=== PATIENT | male | born 1940 | race Hispanic/Latino ===

== ENCOUNTER 2016-09-22 15:07 | Day surgery (SDC) | payer OTHER ==
[~2016-09-22] VITALS: Ht 157.5 cm; Wt 66.7 kg
[~2016-09-22 15:07] MED LIST: ACET-171 PO; CEPH-512 PO; CeFAZolin 2 Gm/50 mL D5W IV Premix IV ONE; CeFAZolin Inj 2 GM in IV Premix 1 EACH IV ONE; LEVO50CA2 PO; LIP40 PO; Lactated Ringer's 1,000 ML IV SCH; METF1000 PO; MULT-1018 PO; TAMS0.4C98 PO
[2016-09-22] MEDS ORDERED: Propofol 10,000 mCg/mL 20 mL Inj ONE (15:08)
[2016-09-22] MEDS ORDERED: CeFAZolin Inj 2 gm / 50mL D5W IV ONE (15:27)
[2016-09-22 15:35] VITALS: BP 150/88; PULSE 68; RESP 16; O2SAT 98
[2016-09-22] MEDS: Lactated Ringer's 1,000 ML IV SCH ×2 (15:47→16:09)
[2016-09-22] MEDS ORDERED: Bupivacaine-MPF 0.25%/EPI 30 mL Inj INJ ONE (16:25)
--- NOTE | 2016-09-22 16:25 | PCM.HPANE ---
Patient Data Surgeon Admitting Provider: Attending Provider:Brandon Mcdermott MD Primary Care Physician:Fred Hutchins MD Other Provider:[facility] Reason for Visit Dermoid Inclusion Cyst Ht/WT & BMI Height (Feet): 6 Weight (Kilograms): 68.04 Body Mass Index 20.00 Allergies Coded Allergies: No Known Allergies (Unverified , 09/22/16) Past Anesthesia History Anesthesia History: Denies:: Abnormal Airway, Anesthesia Reactions, Difficult Intubation, Fam Anesthesia Reaction, Fam Malignant Hypertherm, Malignant Hyperthermia Diabetes History Hx Diabetes?: Yes Type of Diabetes: Type II Glycemic Control: Oral Medication Medications Reported Medications Cephalexin (Keflex)500 Mg [id number] Mg PO BID #40 CAPSULE Ref 0 09/13/16 Levothyroxine (Tirosint)50 Mcg [id number] Mcg PO DAILY 09/13/16 Tamsulosin (Flomax)0.4 Mg Capsule0.8 Mg PO DAILY Ref 0 09/13/16 Multivitamin (Multi Vitamin Daily)1 Each Tablet1 Each PO DAILY 30 Days Ref 0 09/13/16 Metformin (Glucophage)1,000 Mg Tablet1,000 Mg PO BID Ref 0 09/13/16 Acetaminophen 500 Mg Tablet1,000 Mg PO DAILY 09/13/16 Atorvastatin (Lipitor)40 Mg [id number] Mg PO DAILY Ref 0 09/13/16 History History of ENT Problems?: No HEENT History: Denies:: Abnormal Airway Cataracts Difficult Intubation Dysphagia Glaucoma Hearing Problem Sinus Problem TMJ Denture Type: None Teeth Condition: Within Normal Limits Hx of Heart Problems?: Yes Cardiovascular History: Denies:: AICD Abdominal Aortic Aneurism Atrial Fibrillation Cardiac Surgery Chest Pain Congestive Heart Failure Coronary Artery Disease Edema Heart Murmur Hypertension Irregular Heartbeat Pacemaker Peripheral Vascular Rheumatic Fever Thrombophlebitis Valvular Heart Disease Hx of Respiratory Problem?: No Respiratory History: Denies:: Asthma COPD Chest Surgery Cough Dyspnea Emphysema Hemoptysis Oxygen Administration Pneumonia Pulmonary Embolism Tuberculosis Use of C-PAP Machine Use of Inhalers / NEBS Hx Neurologic Problems?: No Neurological History: Denies:: Alzheimer's Disease CVA Dementia Dizziness Headaches Multiple Sclerosis Parkinson's Disease Peripheral Neuropathy Seizures TIA Hx of GI Problems?: No Gastrointestinal History: Denies:: Cirrhosis Diverticulitis Gall Bladder Disease Gastroesphageal Reflux Gastrointestinal Bleeding Heartburn Hepatitis Hiatal Hernia Liver Disease Rectal Bleeding Hx of Problems?: No Genitourinary History: Denies:: HX of Hemodialysis Kidney Stones Urinary Tract Infection Male Hx: Positive for:: Prostate Problems (hx of prostate "duct work" done in [place]- 1997) Denies:: Scrotal Mass Testicular Surgery Skin History: Positive for:: History Skin Disorders? (posterior scalp cyst) Hx Musculoskeletal Problems?: No Musculoskeletal History: Denies:: Back Injury Degenerative Joint Fibromyalgia Joint Replacement Musculoskeletal Trauma Myasthenia Gravis Osteoarthritis Rheumatoid Arthritis Systemic Lupus Hx of Psycho/Social Problems?: No Psycho Social History: Denies:: Anxiety Bipolar Disorder Hx Depression Suicide Attempt Hx Surgeries?: Yes (prostate) Hx Any Other Health Problems?: Yes Other History: Positive for:: Thyroid Disease Denies:: Cancer Endocrine Disease Hospitalization History Blood Transfusions: Denies:: Accept Blood Products? Blood Transfuse Reaction Blood Transfusions Hx Diabetes: Yes Stop/Bang S-Snoring: Do You Snore Loudly: No T-Tired: feel tired, fatigued: No O-Obsered: Observed not breath: No P-Blood Pressure: treated: No B- Body Mass Index > 35 kg/m2: No A- Age over 50: Yes N- Neck Large Circumference: No G- Gender Male: Yes GOLDEN Total Score: 2 Risk Assessment Category Category 1A: Patient has history of documented sleep apnea, and HAS NOT received any narcotic, sedative or anesthesia administration during this stay. Category 1B: Patient has history of documented sleep apnea, and HAS received any narcotic , sedative or anesthesia administration during this stay Category 2: Patient has SUSPECTED Obstructive Sleep Apnea, and HAS received any narcotic , sedative or anesthesia administration during this stay. Category 3: Patient has SUSPECTED Obstructive Sleep Apnea and HAS NOT received narcotic, sedative or anesthesia administration during this stay. Category 4: Outpatient in Procedural Areas with known sleep apnea or who screen positive for High Risk via the STOP/BANG questionnaire. Exam Exam General Appearance: Alert, Oriented X3, Cooperative HEENT/AIRWAY: MP 1 Lungs: Normal Air Movement Heart: Regular Rate/Rhythm Plan Impression Patient chart reviewed, patient interviewed and anesthestic plan with risks, benefits, and alternatives discussed, and informed consent obtained. ASA Physical Status: ASA2 Mod Systemic Disease Anesthetic Plan: MAC Bene/Risks/Altern/Consents: Yes HP Complete Prior to Induction: Yes Vel Parker MD Sep 22, 2016 07:54 Vero Lee DO Sep 22, 2016 16:25
[2016-09-22] MEDS ORDERED: Lactated Ringer's 1,000 ML IV SCH (16:31)
[2016-09-22] MEDS ORDERED: Lactated Ringer's 500 ML IV PRN (16:31)
[2016-09-22] MEDS ORDERED: Ondansetron 2 mg/mL 2 mL Inj IVPUSH PRN (16:35)
[2016-09-22] MEDS ORDERED: fentaNYL-PF 50 mCg/mL 2 mL Inj IVPUSH PRN (16:35)
[2016-09-22 16:44] VITALS: BP 137/89; PULSE 67; RESP 16; O2SAT 97
--- NOTE | 2016-09-22 16:51 | PCM.ANEP1 ---
Post Anesthesia Phase 1 PACU Phase 1 Assessment Vital Signs Vital Signs Date Time Temp Pulse Resp B/P Pulse Ox O2 Delivery O2 Flow Rate FiO2 09/22/16 15:35 37 68 16 150/88 98 Room Air Anesthetic Administered: MAC Level of Alertness: Awake, talking GARCIA's with Equal Strength: Yes Pain: No Nausea or Vomiting: No Oxygen Delivery: Room Air Lungs: Normal Air Movement Complications: No eVro Lee DO Sep 22, 2016 16:50
[2016-09-22 17:18] VITALS: BP 148/78; PULSE 63; RESP 16; O2SAT 95
--- NOTE | 2016-09-22 23:48 | OP ---
[address] [id number] OPERATIVE REPORT PATIENT: ASAD MCKAY : 1940 MR#: [id number] ADMIT: 09/22/2016 JOB ID: [id number] DATE OF SURGERY: 09/22/2016 ANESTHESIA: MAC with local. PREOPERATIVE DIAGNOSIS(ES): Posterior scalp sebaceous cyst. POSTOPERATIVE DIAGNOSIS(ES): Posterior scalp sebaceous cyst. OPERATIVE PROCEDURE: Excision of posterior scalp sebaceous cyst measuring approximately 2 cm in greatest size SURGEON: Brandon Mcdermott MD. MARKETING OPERATIONS CONSULTANT: Navin Gastelum PA-C. COMPLICATIONS: None. ESTIMATED BLOOD LOSS: Minimal. CONDITION: Satisfactory. SPECIMEN: The sebaceous cyst was not sent for pathologic examination. INDICATIONS/SIGNIFICANT HISTORY: The patient is a 76-year-old man who has been experiencing intermittent swelling of the posterior scalp lump for quite some time. It recently ruptured. He wanted it definitively removed. Given his age, location and the size, I decided to do this in the operating room. OPERATIVE TECHNIQUE: The patient was taken to the operating room and placed in the prone position. Light sedation was administered. Preoperative antibiotics were given. The neck was prepped and draped in standard surgical fashion. A procedure pause was performed. I made an elliptical incision in the skin encompassing the punctum and then excised the skin and underlying cyst completely. Local anesthetic had been injected. The skin was then reapproximated with 3-0 Vicryl deep sutures followed by interrupted 3-0 nylon. The procedure was well tolerated without complication. The case then completed.
== END 2016-09-22 23:59 | disposition home or self-care (01) ==
LOC: SAS 15:07
PROVIDERS: ATTEND General Practice
DX: L72.3 Sebaceous cyst (principal); E11.9 Type 2 diabetes mellitus without complications; N40.0 Benign prostatic hyperplasia without lower urinary tract symptoms; E78.00 Pure hypercholesterolemia, unspecified; Z79.84 Long term (current) use of oral hypoglycemic drugs
CPT/HCPCS: 11422; J0690; J7120